=== PATIENT | female | born 1940 | race Caucasian/White ===

== ENCOUNTER 2020-05-01 08:55 | Outpatient (CLI) | payer MEDICARE, BC ==
[2020-05-01] MEDS ORDERED: OMNIPAQUE 350 MG/ML, 75ML BOTTLE ONE (10:30)
== END 2020-05-01 23:59 | disposition home or self-care (01) ==
LOC: CFH 08:55
PROVIDERS: ATTEND Nurse Practitioner
DX: R91.1 Solitary pulmonary nodule (principal)
CPT/HCPCS: 71260; Q9967